=== PATIENT | female | born 1960 | race American Indian/Alaskan Native ===

== ENCOUNTER 2017-02-05 11:27 | Outpatient (CLI) | payer OTHER ==
--- NOTE | 2017-02-05 12:17 | XRay Report ---
Left knee: Routine views demonstrates large periarticular spurs involving the medial joint compartment. The compartment is significantly narrowed although the articular margins are smooth. There is relatively good alignment of the knee joint. There is mild retropatellar narrowing with mild articular spurs. The bones are well-mineralized. There is no effusion. Impressions: Medial compartment and patella degenerative changes.
== END 2017-02-05 11:28 | disposition home or self-care (01) ==
LOC: SPVIMAG 11:27
PROVIDERS: ATTEND Internal Medicine
DX: M25.562 Pain in left knee (principal)

== ENCOUNTER 2021-01-11 08:02 | Day surgery (SDC) | payer BC, OTHER ==
[~2021-01-11 08:02] MED LIST: SODIUM CHLORIDE 0.9% 1000 ML 1,000 ML IV SCH
[2021-01-11] MEDS ORDERED: LIDOCAINE MPF (2%) 20 MG/1 ML VIAL 5 ML ONE (08:22)
[2021-01-11] MEDS ORDERED: propofoL 200 MG/20 ML VIAL IV ONE ×2 (08:22→09:06)
[2021-01-11] MEDS ORDERED: ONDANSETRON 4 MG/2 ML INJ ONE (08:22)
--- NOTE | 2021-01-11 08:26 | Anesthesia Consultation ---
Anesthesia Consult and Med Hx Date of service: 01/11/21 - Airway Anesthetic Teeth Evaluation: Good ROM Head & Neck: Adequate Mental/Hyoid Distance: Adequate Mallampati Class: Class III Intubation Access Assessment: Possibly Difficult - Pulmonary Exam CTA: Yes - Cardiac Exam Cardiac Exam: RRR - Pre-Operative Health Status ASA Pre-Surgery Classification: ASA3 Proposed Anesthetic Plan: MAC - Pulmonary Hx Smoking: No Hx Respiratory Symptoms: Yes (seasonal bronchitis, last inhaler use 2 months ago) Hx Sleep Apnea: No (high STOP BANG screening score) - Cardiovascular System Hx Hypertension: Yes (took antihypertensives today) Hx Heart Attack/AMI: No Hx Percutaneous Transluminal Coronary Angioplasty (PTCA): No Hx Cardia Arrhythmia: No - Central Nervous System CVA: No - Endocrine Hx Renal Disease: Yes (has 1 kidney; CKD stage 3) Hx Liver Disease: No Hx Insulin Dependent Diabetes: No Hx Non-Insulin Dependent Diabetes: No Hx Hypothyroidism: Yes (took synthroid today) - Other Systems Hx Obesity: Yes - Additional Comments Anesthesia Medical History Comments: No hx anesthetic complications.
--- NOTE | 2021-01-11 08:26 | Anesthesia Day of Surgery ---
Anesthesia Day of Surgery - Day of Surgery Patient Examined: Yes Patient H&P Reviewed: Yes Patient is NPO: Yes Beta Blockers: Yes (bystolic )
--- NOTE | 2021-01-11 09:23 | Short Stay Summary ---
Short Stay Documentation Date of service: 01/11/21 Narrative H&P: The patient presents for routine screening colonoscopy, average risk profile. - History H&P: obtained from office - Allergies and Medications Current Medications: Allergies No Known Allergies Allergy (Unverified 01/10/21 15:16) Home Medications Medication Instructions Recorded Confirmed Last Taken Type Bystolic 5 mg PO DAILY 01/10/21 01/11/21 01/11/21 07:00 History Cetirizine HCl 10 mg PO DAILY 01/10/21 01/11/21 01/04/21 09:00 History HCTZ 12.5 mg PO DAILY 01/10/21 01/11/21 01/11/21 07:00 History Levothyroxine 50 mcg PO DAILY 01/10/21 01/11/21 01/11/21 07:00 History Active Medications Sodium Chloride (Nacl 0.9% 1000 Ml) 1,000 mls @ 50 mls/hr IV DIRECT DAVID Last Admin: 01/11/21 08:40 Dose: 50 mls/hr Documented by: - Brief post op/procedure progress note Date of procedure: 01/11/21 Findings: see dictation Estimated blood loss: none Pathology: list (transverse colon polyp) Specimen disposition: to lab Condition: stable - Disposition Condition at discharge: Good Disposition: DC-01 TO HOME OR SELFCARE - Discharge Diagnoses (1) Colon cancer screening Status: Acute Short Stay Discharge Plan Activity: other (no driving for 24 hours. Avoid NSAIDS for 5 days) Weight Bearing Status: Weight Bear as Tolerated Diet: advance as tolerated Follow up with: VIRY PLAZA MD [Primary Care Provider] - 7 Days
--- NOTE | 2021-01-11 09:26 | Operative Report ---
Operative Report Operative Report: Date of procedure: 01/11/2021 Preprocedure diagnosis: Colon cancer screening, average risk profile. Last stud y 10 years ago. Post procedure diagnosis: 1.2 cm pedunculated transverse colon polyp Procedure: Colonoscopy to the cecum with hot snare polypectomy Endoscopist: Dr. Craven Anesthesia: Monitored anesthesia care per anesthesia department Estimated blood loss: 0 Medications: Monitored anesthesia care. See separate report by anesthesia for details. After careful discussion of the nature and purpose of the procedure as well as details of the technique risks benefits and alternatives the patient gave consent. Please see recent history and physical from the office. The patient was placed in the left lateral decubitus position and medicated per anesthesia. A rectal exam was performed sphincter tone was normal there were no masses palpable. The [facility] 570 scope was passed transanally and advanced under continuous direct vision without difficulty to the cecum. The colon was well prepared. The cecum was normal. The ascending colon was normal and on forward and retroflexed views. The transverse colon revealed a 1.2 cm pedunculated polyp on a small stalk. The polyp was removed completely with snare electrocautery at the stalk level. The polyp was retrieved by removal and the tip of the scope then followed by reintroduction of the scope to the level of the polypectomy site. The descending colon and sigmoid colon were normal. The rectum was normal on forward and retroflexed views. The procedure was well-tolerated overall and the patient was observed in recovery. Conclusions: 1.2 cm pedunculated transverse colon polyp, otherwise normal study. Plan: Await pathology. Repeat colonoscopy in 3 years. Signed electronically: Kem Craven M.D.
[2021-01-11 10:13] VITALS: BP 115/72
--- NOTE | 2021-01-11 12:11 | Post Anesthesia Evaluation ---
- Post Anesthesia Evaluation Patient Participated: Yes Airway Patent: Yes Stable Respiratory Function: Yes Nausea/Vomiting: No Temp > 96.8F: Yes Pain Manageable: Yes Adequeate Hydration: Yes Anesthesia Complications: No
== END 2021-01-11 10:00 | disposition home or self-care (01) ==
LOC: GIO 08:02
PROVIDERS: ATTEND Internal Medicine Gastroenterology
DX: Z12.11 Encounter for screening for malignant neoplasm of colon (principal); D12.3 Benign neoplasm of transverse colon; I12.9 Hypertensive chronic kidney disease with stage 1 through stage 4 chronic kidney disease, or unspecified chronic kidney disease; N18.30 Chronic kidney disease, stage 3 unspecified; E66.9 Obesity, unspecified; E03.9 Hypothyroidism, unspecified; Z79.899 Other long term (current) drug therapy; Z98.890 Other specified postprocedural states; Z68.44 Body mass index [BMI] 60.0-69.9, adult
CPT/HCPCS: 45385; 88305; J2405; J2704; J7030